=== PATIENT | male | born 1965 | race Two or more races ===

== ENCOUNTER 2024-08-31 22:35 | Inpatient (IN) | payer MEDICARE ==
[~2024-08-31] VITALS: Ht 175.3 cm; Wt 69.4 kg
[2024-08-31] MEDS ORDERED: ZOLP5TAB2 PO (22:47)
[2024-08-31] MEDS ORDERED: ARIP10TA57 PO (22:47)
[2024-08-31] MEDS ORDERED: BUPR-96 PO (22:47)
[2024-08-31] MEDS ORDERED: LORA0.5T48 PO (22:47)
[2024-08-31 23:16] LABS: BASOPHILS % (AUTO) 0.5 % (0.0-2.0); EOSINOPHILS # (AUTO) 0.2 K/uL (0.0-0.7); EOSINOPHILS % (AUTO) 2.3 % (0.0-7.0); HEMATOCRIT 39.5 % (36.7-47.1); HEMOGLOBIN 13.6 g/dL (12.5-16.3); LYMPHOCYTES # (AUTO) 2.5 K/uL (0.8-4.8); LYMPHOCYTES % (AUTO) 27.7 % (20.5-51.5); MEAN CORPUSCULAR HGB CONC 34 g/dL (32.5-36.3); MEAN CORPUSCULAR VOLUME 96.2 fL (73.0-96.2); MONOCYTES # (AUTO) 0.6 K/uL (0.1-1.30); MONOCYTES % (AUTO) 6.8 % (0.0-11.0); NEUTROPHILS # (AUTO) 5.6 K/uL (1.8-8.9); NEUTROPHILS % (AUTO) 62.7 % (38.5-71.5); PLATELET COUNT (AUTO) 226 K/uL (152-348); RED BLOOD CELL COUNT(AUTO) 4.11 MIL/uL (4.06-5.63); RED CELL DISTRIBUTION WIDTH 13.7 % (12.1-16.2)
[2024-08-31 23:24] LABS: DIFFERENTIAL COMMENT 1
[2024-08-31 23:31] LABS: *BILIRUBIN,URIN NEGATIVE (NEGATIVE); *CLARITY,URINE CLEAR (CLEAR); *COLOR,URINE YELLOW (YELLOW); *KETONES,URINE NEGATIVE (NEGATIVE); *PROTEIN,URINE NEGATIVE (NEGATIVE); *UROBILINOGEN,URINE 0.2 E.U./dl (NORMAL); LEUKOCYTE ESTERASE ,URINE NEGATIVE (NEGATIVE); NITRITE, URINE NEGATIVE (NEGATIVE); UGLUCOSE NEGATIVE (NEGATIVE)
[2024-08-31 23:32] LABS: *BLOOD, URINE TRACE (NEGATIVE)
[2024-08-31 23:39] LABS: BACTERIA,URINE NONE SEEN /HPF (NONE SEEN); ETHANOL < 3 MG/DL (0-10); RBC,URINE 0-3 /HPF (0-3); SQUAMOUS EPITHELIAL CELL,UR NONE SEEN /HPF (NONE SEEN); WBC,URINE NONE SEEN /HPF (0-3)
[2024-08-31 23:44] LABS: CALCIUM 8.9 mg/dL (8.5-10.1); CARBON DIOXIDE 29 mmol/L (21-32); CHLORIDE 105 mmol/L (98-107); CREATININE 0.6 mg/dL (0.6-1.3); GLUCOSE 87 mg/dL (74-106); POTASSIUM 4.3 mmol/L (3.5-5.1); SODIUM SERUM 140 mmol/L (136-145); UREA NITROGEN, BLOOD 13 mg/dL (7-18)
[2024-08-31 23:50] LABS: *AMPHETAMINE, URINE NEGATIVE (NEGATIVE); *BARBITURATE, URINE NEGATIVE (NEGATIVE); *BENZODIAZEPINE, URINE NEGATIVE (NEGATIVE); *CANNABINOID, URINE POSITIVE (NEGATIVE); *COCCAINE, URINE NEGATIVE (NEGATIVE); *OPIATE, URINE NEGATIVE (NEGATIVE); *PHENCYCLIDINE SCREEN,URINE NEGATIVE (NEGATIVE); ALANINE AMINOTRANSFERASE 23 U/L (16-63); ALBUMIN 3.8 g/dL (3.4-5.0); ALKALINE PHOSPHATASE 73 U/L (50-136); ASPARTATE AMINOTRANSFERASE 9 U/L (15-37); BILIRUBIN,DIRECT 0.1 mg/dL (0.0-0.2); BILIRUBIN,TOTAL 0.2 mg/dL (0.2-1.0); FENTANYL, URINE NEGATIVE (NEGATIVE); TOTAL PROTEIN, SERUM 7.4 g/dL (6.4-8.2)
[2024-09-01] MEDS ORDERED: ACETAMINOPHEN 325 MG TABLET PO PRN (05:45)
[2024-09-01] MEDS ORDERED: MAG HYDROX/AL HYDROX/SIMETH 30 ML LIQUID UDC PO PRN (05:45)
[2024-09-01] MEDS ORDERED: LORAZEPAM 1 MG TABLET PO PRN (05:45)
[2024-09-01] MEDS: BLOOD SUGAR DIAGNOSTIC 1 EACH STRIP VI ONE (06:15)
[2024-09-01 08:04] VITALS: BP 132/84; TEMP 98; O2SAT 96
[2024-09-01] MEDS: DIVALPROEX 250 MG TABLET.DR PO SCH ×2 (12:56→20:37)
[2024-09-01] MEDS: ARIPIPRAZOLE 10 MG TABLET PO SCH (12:56)
[2024-09-01] MEDS: MAGNESIUM HYDROXIDE 30 ML LIQUID UDC PO PRN (13:11)
[2024-09-01 16:37] VITALS: BP 166/55; TEMP 98; O2SAT 97
[2024-09-01 19:56] VITALS: BP 130/68; TEMP 98.1; O2SAT 96
[2024-09-01] MEDS: TEMAZEPAM 7.5 MG CAPSULE PO PRN (20:44)
[2024-09-02 07:54] VITALS: BP 106/70; TEMP 98; O2SAT 99
[2024-09-02 15:17] VITALS: BP 100/57; TEMP 98; O2SAT 98
[2024-09-02 20:00] VITALS: BP 105/65; TEMP 97.7; O2SAT 98
[2024-09-03 07:43] VITALS: BP 114/41; TEMP 98; O2SAT 98
[2024-09-03 15:14] VITALS: BP 141/72; TEMP 98; O2SAT 98
[2024-09-03 20:00] VITALS: BP 98/55; TEMP 97.7; O2SAT 93
[2024-09-03] MEDS: DIVALPROEX 500 MG TABLET.DR PO SCH (20:13)
[2024-09-04 07:42] VITALS: BP 109/70; TEMP 98.2; O2SAT 99
[2024-09-04] MEDS: ARIPIPRAZOLE 5 MG TABLET PO SCH (13:49)
[2024-09-04 15:33] VITALS: BP 90/51; TEMP 98.2; O2SAT 98
[2024-09-04 20:00] VITALS: BP 136/90; TEMP 97.6; O2SAT 98
[2024-09-05 07:31] VITALS: BP 92/55; TEMP 98.2; O2SAT 99
[2024-09-05 15:00] VITALS: BP 99/59; TEMP 98.2; O2SAT 99
[2024-09-05 20:38] VITALS: BP 101/71; TEMP 98; O2SAT 98
[2024-09-06 08:04] VITALS: BP 111/52; TEMP 97.3; O2SAT 100
[2024-09-06 16:32] VITALS: BP 105/54; TEMP 97.5; O2SAT 98
[2024-09-06 20:17] VITALS: BP 112/56; TEMP 97.7; O2SAT 98
[2024-09-06] MEDS: LORAZEPAM 1 MG TABLET PO PRN (20:42)
[2024-09-07 07:47] LABS: ALANINE AMINOTRANSFERASE 24 U/L (16-63); ALBUMIN 3.6 g/dL (3.4-5.0); ALKALINE PHOSPHATASE 65 U/L (50-136); ASPARTATE AMINOTRANSFERASE < 5 U/L (15-37); BILIRUBIN,TOTAL 0.4 mg/dL (0.2-1.0); CALCIUM 9.1 mg/dL (8.5-10.1); CARBON DIOXIDE 31 mmol/L (21-32); CHLORIDE 105 mmol/L (98-107); CREATININE 0.7 mg/dL (0.6-1.3); GLUCOSE 102 mg/dL (74-106); POTASSIUM 4.8 mmol/L (3.5-5.1); SODIUM SERUM 140 mmol/L (136-145); TOTAL PROTEIN, SERUM 7.3 g/dL (6.4-8.2); UREA NITROGEN, BLOOD 15 mg/dL (7-18)
[2024-09-07 08:04] VITALS: BP 119/61; TEMP 98; O2SAT 98
[2024-09-07 13:41] LABS: VALPROIC ACID 64 ug/mL (50-100)
[2024-09-07 16:43] VITALS: BP 127/80; TEMP 98.1; O2SAT 100
[2024-09-07 19:55] VITALS: BP 120/64; TEMP 98.1; O2SAT 99
[2024-09-08 08:06] VITALS: BP 120/86; TEMP 98.3; O2SAT 98
== END 2024-09-08 14:00 | DRG 885 ==
LOC: ER 22:54 → GPS 09-01 04:22
PROVIDERS: ADMIT Psychiatry & Neurology Psychosomatic Medicine
DX: F25.0 Schizoaffective disorder, bipolar type (principal); F12.10 Cannabis abuse, uncomplicated; M17.11 Unilateral primary osteoarthritis, right knee; G89.29 Other chronic pain; M54.50 Low back pain, unspecified; G47.00 Insomnia, unspecified; Z79.899 Other long term (current) drug therapy
CPT/HCPCS: 36415; 80164; 85025; G0480; J3490